=== PATIENT | female | born 2000 | race African-American/Black ===

== ENCOUNTER 2019-11-03 09:50 | Day surgery (SDC) | payer OTHER ==
[~2019-11-03] VITALS: Ht 165.1 cm; Wt 80.0 kg
[2019-11-03] MEDS ORDERED: MORPHINE 4 MG/ML 1ML VIAL/SYRINGE (J2270) IV ONE (11:30)
[2019-11-03] MEDS ORDERED: ONDANSETRON 4MG/2ML VIAL IV ONE (11:30)
--- NOTE | 2019-11-03 11:45 | REP ---
RIGHT LOWER LEG, AP AND LATERAL: AP and lateral views of right lower leg performed. There is a comminuted fracture of the distal third of the tibial shaft with mild posterior displacement and anterior angulation. There is also medial angulation. There is focal angulation of the adjacent fibular shaft medially and anteriorly compatible with a nondisplaced fracture. Electronically Signed by Gavin Talbot MD 11/06/2019 09:23 A
[2019-11-03] MEDS ORDERED: IBUP80TA PO (11:46)
[2019-11-03] MEDS ORDERED: LR 1,000 ML IV SCH ×2 (16:30→20:30)
[2019-11-03] MEDS ORDERED: MORPHINE 4 MG/ML 1ML VIAL/SYRINGE (J2270) IV PRN (16:30)
[2019-11-03 17:40] VITALS: BP 153/99
[2019-11-03] MEDS ORDERED: ONDANSETRON 4MG/2ML VIAL As Ordered ONE (18:11)
[2019-11-03] MEDS ORDERED: propofoL 500 MG/50 ML VIAL As Ordered ONE (18:11)
[2019-11-03] MEDS ORDERED: LIDOCAINE 2% 100MG/5ML SDV (FOR ANES.) As Ordered ONE (18:11)
[2019-11-03] MEDS ORDERED: fentaNYL 100 MCG/2 ML INJECTION (J3010) As Ordered ONE ×3 (18:12→20:23)
[2019-11-03] MEDS ORDERED: MIDAZOLAM INJ 2MG/2ML VIAL (J2250 PER 1MG) As Ordered ONE (18:12)
[2019-11-03] MEDS ORDERED: BUPIVACAINE/EPIN 0.25% 30 ML VIAL As Ordered ONE (19:12)
[2019-11-03] MEDS ORDERED: ceFAZolin 1GM VIAL (J0690 PER 500MG) As Ordered ONE (19:12)
[2019-11-03] MEDS ORDERED: ACETAMINOPHEN 1000MG 100ML IV BTL (OFIRMEV) (J0131 PER 10MG) As Ordered ONE (19:37)
[2019-11-03] MEDS ORDERED: propofoL 200 MG/20 ML VIAL As Ordered ONE (20:05)
[2019-11-03] MEDS ORDERED: oxyCODONE 5MG TAB As Ordered ONE (20:24)
[2019-11-03] MEDS: fentaNYL 100 MCG/2 ML INJECTION (J3010) IV PRN ×4 (20:26→20:46)
[2019-11-03] MEDS ORDERED: oxyCODONE 5MG TAB PO PRN (20:30)
[2019-11-03] MEDS ORDERED: HYDROMORPHONE HCL 0.5 MG/ 0.5 ML SYRINGE (J1170 PER 1) IV PRN ×2 (20:30)
[2019-11-03] MEDS ORDERED: ONDANSETRON 4MG/2ML VIAL IV PRN (20:30)
[2019-11-03] MEDS ORDERED: PROMETHAZINE INJ 25 MG/ML VIAL (J2550) IV PRN (20:45)
[2019-11-03] MEDS ORDERED: PERCOCET 5MG/325MG TAB PO PRN ×2 (20:45)
[2019-11-03] MEDS ORDERED: D5W/LR 1,000 ML IV SCH (20:45)
[2019-11-03 21:06] VITALS: BP 152/98
[2019-11-03 21:26] VITALS: BP 152/98
[2019-11-03 22:34] VITALS: BP 149/95
[2019-11-04 02:05] VITALS: BP 125/64
[2019-11-04 06:14] VITALS: BP 136/79
[2019-11-04] MEDS ORDERED: PERC5TAB12 PO (06:28)
[2019-11-04] MEDS ORDERED: ECOT81TA5 PO (06:28)
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
[2019-11-04] MEDS ORDERED: METAMUCIL (PSYLLIUM) PACKET PO SCH (09:00)
[2019-11-04] MEDS ORDERED: ASPIRIN 81 MG ENTERIC TAB PO SCH (09:00)
--- NOTE | 2019-11-04 09:44 | REP ---
REASON: Closed reduction. COMPARISON: Prereduction examination obtained earlier same day. 33 seconds of fluoroscopy time was provided Dr. Russell Marcial for the procedure. Overlying casting material is seen obscuring the bony detail. The exam was performed in my absentia. A portable C-arm device was utilized to obtain the images. The previously described fracture has been reduced in a closed fashion. The alignment is near anatomical. Electronically Signed by Dakotah Aleman DO 11/04/2019 10:17 A
[2019-11-04 10:00] VITALS: BP 133/77
--- NOTE | 2019-11-04 10:40 | REP ---
REASON: Followup. COMPARISON: Pre-closed reduction exam obtained yesterday. There is overlying casting material obscuring the bony detail. The previously described fracture has been reduced in a closed fashion. Electronically Signed by Dakotah Aleman DO 11/04/2019 10:43 A
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
== END 2019-11-04 12:40 | disposition home or self-care (01) ==
LOC: M ED 09:50 → M SDC 15:15 → M MS5PR 15:20 → ENRESERV 15:21 → M SDC 11-04 12:40
PROVIDERS: ATTEND Orthopaedic Surgery
DX: S82.201A Unspecified fracture of shaft of right tibia, initial encounter for closed fracture (principal); W01.0XXA Fall on same level from slipping, tripping and stumbling without subsequent striking against object, initial encounter; Y99.1 Military activity; Y92.138 Other place on military base as the place of occurrence of the external cause; Y93.02 Activity, running; Z91.81 History of falling
CPT/HCPCS: 27750; 73590; 84702; 96374; 96375; 96376; 97161; 99285; J0131; J2250; J2270; J2405; J3010; U0002

== ENCOUNTER 2019-11-24 06:55 | Emergency (ER) | payer OTHER ==
[~2019-11-24 06:55] MED LIST: ECOT81TA5 PO; IBUP80TA PO; PERC5TAB12 PO
== END 2019-11-24 07:50 | disposition home or self-care (01) ==
LOC: M ED 06:55
DX: G89.18 Other acute postprocedural pain (principal); M79.661 Pain in right lower leg

== ENCOUNTER 2020-09-12 17:07 | Emergency (ER) | payer OTHER ==
[~2020-09-12] VITALS: Ht 144.8 cm; Wt 84.1 kg
[2020-09-12] MEDS ORDERED: NS 500 ML IV ONE (19:40)
[2020-09-12 20:18] LABS: BASO % 0.2 % (0.0-1.0); EOS % 0.1 % (0.0-3.0); HEMATOCRIT 37.2 % (36.0-47.0); HEMOGLOBIN 12.5 g/dl (12.0-15.5); LYMPH # 2.2 10^3/uL (1.5-5.0); LYMPH % 22.7 % (24.0-44.0); MEAN CORPUSCULAR HEMOGLOBIN 32.3 pg (27.0-33.0); MEAN CORPUSCULAR HGB CONC 33.6 g/dl (32.0-36.5); MEAN CORPUSCULAR VOLUME 96.1 fl (80.0-96.0); MONO # 0.9 10^3/uL (0.0-0.8); MONO % 9.4 % (2.0-8.0); NEUTROPHILS # 6.4 10^3/uL (1.5-8.5); NEUTROPHILS % 67.2 % (36.0-66.0); PLATELET COUNT, AUTOMATED 241 10^3/uL (150-450); RED BLOOD COUNT 3.87 10^6/uL (4.00-5.40); WHITE BLOOD COUNT 9.5 10^3/uL (4.0-10.0)
[2020-09-12 20:47] LABS: ALBUMIN 3.5 GM/DL (3.2-5.2); ALT/SGPT 19 U/L (12-78); BILIRUBIN,DIRECT 0.1 MG/DL (0.0-0.2); BILIRUBIN,TOTAL 0.3 MG/DL (0.2-1.0); BLOOD UREA NITROGEN 6 MG/DL (7-18); CALCIUM LEVEL 9.4 MG/DL (8.5-10.1); CARBON DIOXIDE LEVEL 26 MEQ/L (21-32); CHLORIDE LEVEL 104 MEQ/L (98-107); CK-MB VALUE MASS < 1.0 NG/ML (<3.6); CPK CREATINE PHOSPHOKINASE 58 U/L (26-192); CREATININE FOR GFR 0.67 MG/DL (0.55-1.30); GLOMERULAR FILTRATION RATE > 60.0 (>60); GLUCOSE, FASTING 76 MG/DL (70-100); MAGNESIUM LEVEL 2.1 MG/DL (1.8-2.4); MB/CK RELATIVE INDEX 1.72 (< OR =4); POTASSIUM SERUM 3.8 MEQ/L (3.5-5.1); SODIUM LEVEL 138 MEQ/L (136-145); TOTAL PROTEIN 8.1 GM/DL (6.4-8.2); TROPONIN I < 0.02 NG/ML (< 0.10)
[2020-09-12 20:48] LABS: LIPASE 72 U/L (73-393)
[2020-09-12 21:15] VITALS: BP 118/69
[2020-09-12] MEDS ORDERED: CALCTAB89 PO (22:05)
[2020-09-12] MEDS ORDERED: MULTTAB20 PO (22:05)
--- NOTE | 2020-09-14 08:42 | ECGEPIP ---
[facility] - ED Test Date: 2020-09-12 Pat Name: MISHA DANIEL Department: Room: - Gender: Female Pecan Mallow Dipper: jaspreet : 2000 Requested By: NUBIA Valerio Order Number: [id number] Reading MD: Em Shahid Measurements Intervals [place] Rate: 98 P: 44 NC: 130 QRS: 28 QRSD: 72 T: 18 QT: 342 QTc: 436 Interpretive Statements Normal sinus rhythm with sinus arrhythmia NSTTW abnormalities No prior Electronically Signed on 09-14-2020 8:42:07 EDT by mE Shahid
== END 2020-09-12 21:40 | disposition admitted as inpatient to this hospital (09) ==
LOC: M ED 17:07
DX: O99.891 Other specified diseases and conditions complicating pregnancy (principal); R55 Syncope and collapse; R10.9 Unspecified abdominal pain; Z3A.21 21 weeks gestation of pregnancy

== ENCOUNTER 2020-09-12 21:47 | Outpatient (CLI) | payer OTHER ==
[~2020-09-12] VITALS: Ht 167.6 cm; Wt 83.5 kg
[2020-09-12 22:02] VITALS: BP 120/67
[2020-09-12] MEDS ORDERED: CALCTAB89 PO (22:05)
[2020-09-12] MEDS ORDERED: MULTTAB20 PO (22:05)
--- NOTE | 2020-09-12 22:35 | IPNPDOC ---
Text Note Date of Service The patient was seen on 09/12/20. NOTE 20 yo at 20+6 weeks gestation presented to L&D after evaluation in the ER due to a syncopal episode this morning in formation followed by some SOB and dizziness later this afternoon. She called the advice line and was directed to the ER. She denies any obstetric complaints to include discharge, bleeding, leakage of fluid, or contractions. She has had intermittent cramping before but nothing severe. She otherwise denies fevers/chills, SOB, chest pain, dysuria, n/v, or constipation. Vitals - VSS, afebrile, normotensive, non tachycardic General - AAOX3, sitting up in bed, pleasant and conversant, NAD Abdomen - gravid uterus, no fundal tenderness Extremities - No edema Bedside TAUS ( anatomy not assessed): Viable SIUP. Amniotic fluid subjectively normal. +FCA measured at 140 bpm. +gross movement. Cervix closed measuring 3.7cm in length with no funneling. ER workup unremarkable. No obstetric issues. Cervix long and closed on bedside US. Normal vital signs. Suspect vasovagal episode and/or dehydration contributing to symptoms. She reports having syncopal episodes in the past outside of . Will place outpatient cardiology referral. Patient discharged home with return precautions. All questions answered. 20 minutes of patient care DO IRIS Leblanc Fishbone, I+O IRIS, [place], I+O Vital Signs Date Time Temp Pulse Resp B/P (MAP) Pulse Ox O2 Delivery O2 Flow Rate FiO2 09/12/20 22:02 98.3 95 16 120/67 (84) RUPERT CLEVELAND DO September 12, 2020 22:35
== END 2020-09-12 22:35 | disposition home or self-care (01) ==
LOC: M LDO 21:47
PROVIDERS: ATTEND Obstetrics & Gynecology
DX: O26.892 Other specified pregnancy related conditions, second trimester (principal); R55 Syncope and collapse; Z3A.20 20 weeks gestation of pregnancy
CPT/HCPCS: 76815; G0378; G0463

== ENCOUNTER 2020-09-27 19:57 | Outpatient (CLI) | payer OTHER ==
[~2020-09-27] VITALS: Ht 168.9 cm; Wt 85.0 kg
[~2020-09-27 19:57] MED LIST changes: +CALCTAB89 PO; +MULTTAB20 PO
[2020-09-27 20:18] VITALS: BP 126/64
[2020-09-27 21:22] VITALS: BP 113/67
--- NOTE | 2020-09-27 21:58 | IPNPDOC ---
Text Note Date of Service The patient was seen on 09/27/20. NOTE Triage Evaluation - Vaginal Bleeding HPI: Mrs. Bernard Quiroz is a 20yo G1 at 23w0d ega, by LMP c/w 1st trimester ultrasound, who presents for evaluation of vaginal bleeding following sexual intercourse. The patient, and her , report having sexual intercourse this evening. At the completion, the patient noticed vaginal bleeding quantified as "several large drops". They immediately drove to Labor & Delivery for evaluation. Mrs. Quiroz denies abdominal / pelvic cramping, contractions, or leakage of fluid. She endorses movements. Denies dizziness/lightheadedness, Ktemldxlb-jr-syuwcx, chest pain/palpitations, fevers/chills, nausea/vomiting, or constipation/diarrhea. Of note, the patient is Rh+ and had an anatomy ultrasound performed on August 2020 that was w/o evidence of a placenta previa or vasa previa. EFW was 280-grams, which was in the 12th percentile for growth. Physical Examination: Clam Treader: ROSA Flynn. The patient's partner was also present for the entire encounter. Vital signs were stable, afebrile, normotensive, not tachycardic. General: awake, alert and oriented 3, pleasant and conversant. No apparent distress. Abdomen: gravid uterus with no fundal tenderness. Extremities: no clubbing, cyanosis or edema. : Normal external genitalia with a small amount of dark brown blood on the lab ia. SSE: old dark brown blood in the vaginal vault with an area of cervical irritation & no evidence of bleeding from the cervical os. Labs: Blood Type & Rh: B+, Antibody Negative Dop Tones: 130s TOCO: No uterine irritability or CTXs Assessment: 20yo G1 at 20w0d ega who presents with a single episode of vaginal bleeding following sexual intercourse. No active bleeding at this time with bleeding likely from the cervical stroma. Normal Doptone's w/o contractions or uterine irritability. Plan: -No requirement for Rhogam as the patient is Rh+. Pelvic rest 2-weeks. Patient is to follow up at her next regular OB appointment, which is scheduled for September 2020. Strict return precautions reviewed with the couple. All questions answered. Twyla Georges MD, PhD [employer]ЕРГЕЙ [employer] RESEARCH SCIENTIST Staff Physician SARAH GEORGES M.D. Sep 27, 2020 21:58
== END 2020-09-27 21:40 | disposition home or self-care (01) ==
LOC: M LDO 19:57
PROVIDERS: ATTEND Obstetrics & Gynecology Reproductive Endocrinology
DX: O26.852 Spotting complicating pregnancy, second trimester (principal); Z3A.23 23 weeks gestation of pregnancy
CPT/HCPCS: G0378; G0463

== ENCOUNTER → 2020-10-22 | Outpatient (CLI) | payer OTHER ==
--- NOTE | 2020-10-22 15:00 | REP ---
INDICATION: DALE DIAG U/S, RT BREAST LUMP, 13 WEEKS . Palpable lump 3 x 1 cm in diameter in the 4 o'clock position of the right breast. The patient reports that this is been palpable since the age of 12. COMPARISON: No comparison breast imaging is available.. TECHNIQUE: Targeted right breast sonography. FINDINGS: Ultrasound exam performed in the 3 o'clock position of the right breast at the level of the palpable lump demonstrates a 2.1 x 2.1 x 1.0 cm oval-shaped hypoechoic mass with fairly homogeneous internal texture. Its long axis is parallel to the skin. There is well defined back wall and there is some enhanced through transmission. The lesion has a low K PA number on elastography. It is most compatible with but not specific for fibroadenoma. IMPRESSION: 2.1 cm solid macrolobulated soft tissue mass most compatible with but not specific for fibroadenoma. BI-RADS category is felt to be best assigned as category 3, probably benign breast imaging findings. Six-month follow-up sonography is recommended. Sooner if the lesion grows on physical exam. <Electronically signed by Toni Arias > 10/22/20 [id number]
== END ==
LOC: M WHC 13:25
PROVIDERS: ATTEND Registered Nurse Maternal Newborn
DX: N63.14 Unspecified lump in the right breast, lower inner quadrant (principal); Z3A.13 13 weeks gestation of pregnancy

== ENCOUNTER 2020-11-10 12:23 | Outpatient (CLI) | payer OTHER ==
[~2020-11-10] VITALS: Ht 167.6 cm; Wt 87.0 kg
[2020-11-10 12:48] VITALS: BP 119/57
--- NOTE | 2020-11-10 14:19 | IPNPDOC ---
Text Note Date of Service The patient was seen on 11/10/20. NOTE Vital Signs Label Value Date Time Patient Temperature 98.2 degrees F 11/10/20 1248 Temperature Source Temporal 11/10/20 1248 Pulse 91 11/10/20 1248 Respiratory Rate 16 bpm 11/10/20 1248 Blood Pressure Assessment 119/57 (77) 11/10/20 1248 TRIAGE NOTE 11/10/20 1400 HOURS 20 YO AT 29.5 WEEKS BY EARLY US 10.0 WEEKS HAD INTERCOURSE AND PINK DISCHARGE AFTER THAT . NO CONTRACTIONS AND GOOD MOVEMENT. RISK FACTORS BMI 31 ANXIETY FRACTURE RISK PLAN NST STERILE SPECULUM EXAMINATION MICROSCOPIC EVALUATION . CONSENT FOR EXAMINATION STERILE EXAM NO FREE FLUID NO BLOOD CERVIX POSTERIOR FERNING NEGATIVE NEGATIVE BV AND YEAST . CERVIX CLOSED THICK NOT DILATED . PATIENT DISCHARGED WITH PRECAUTIONS RE INTERCOURSE AND SPOTTING . PASSPORT RETURNED DISCHARGED UNDELIVERED HAS APPOINTMENT FT [facility] 48 HOURS Danyel Aguilar MD Nov 10, 2020 14:19
== END 2020-11-10 14:18 | disposition home or self-care (01) ==
LOC: M LDO 12:23
PROVIDERS: ATTEND Obstetrics & Gynecology
DX: O46.93 Antepartum hemorrhage, unspecified, third trimester (principal); Z3A.29 29 weeks gestation of pregnancy; O99.213 Obesity complicating pregnancy, third trimester; E66.9 Obesity, unspecified; O99.343 Other mental disorders complicating pregnancy, third trimester; F41.9 Anxiety disorder, unspecified; Z68.31 Body mass index [BMI] 31.0-31.9, adult
CPT/HCPCS: 59025; G0378; G0463

== ENCOUNTER 2020-11-21 07:01 | Emergency (ER) | payer OTHER ==
[~2020-11-21] VITALS: Ht 170.2 cm; Wt 88.5 kg
[2020-11-21] MEDS ORDERED: NS 1,000 ML IV ONE (09:00)
[2020-11-21 10:41] LABS: BASO % 0.3 % (0.0-1.0); EOS % 0.3 % (0.0-3.0); HEMATOCRIT 29.6 % (36.0-47.0); HEMOGLOBIN 9.8 g/dl (12.0-15.5); LYMPH # 1.8 10^3/uL (1.5-5.0); LYMPH % 16.9 % (24.0-44.0); MEAN CORPUSCULAR HEMOGLOBIN 31.9 pg (27.0-33.0); MEAN CORPUSCULAR HGB CONC 33.1 g/dl (32.0-36.5); MEAN CORPUSCULAR VOLUME 96.4 fl (80.0-96.0); MONO # 0.9 10^3/uL (0.0-0.8); MONO % 8.5 % (2.0-8.0); NEUTROPHILS # 7.7 10^3/uL (1.5-8.5); NEUTROPHILS % 73.3 % (36.0-66.0); PLATELET COUNT, AUTOMATED 177 10^3/uL (150-450); RED BLOOD COUNT 3.07 10^6/uL (4.00-5.40); WHITE BLOOD COUNT 10.6 10^3/uL (4.0-10.0)
[2020-11-21] MEDS ORDERED: ACETAMINOPHEN 500 MG TAB PO ONE (11:00)
[2020-11-21 11:03] LABS: ALBUMIN 2.7 GM/DL (3.2-5.2); ALT/SGPT 17 U/L (12-78); BILIRUBIN,TOTAL 0.4 MG/DL (0.2-1.0); BLOOD UREA NITROGEN 5 MG/DL (7-18); CALCIUM LEVEL 8.8 MG/DL (8.5-10.1); CARBON DIOXIDE LEVEL 23 MEQ/L (21-32); CHLORIDE LEVEL 108 MEQ/L (98-107); CK-MB VALUE MASS < 1.0 NG/ML (<3.6); CPK CREATINE PHOSPHOKINASE 46 U/L (26-192); CREATININE FOR GFR 0.53 MG/DL (0.55-1.30); FREE T4 0.84 NG/DL (0.76-1.46); GLOMERULAR FILTRATION RATE > 60.0 (>60); GLUCOSE, FASTING 74 MG/DL (70-100); MB/CK RELATIVE INDEX 2.17 (< OR =4); POTASSIUM SERUM 3.9 MEQ/L (3.5-5.1); SODIUM LEVEL 140 MEQ/L (136-145); THYROID STIMULATING HORMONE 0.777 uIU/ML (0.358-3.740); TOTAL PROTEIN 6.6 GM/DL (6.4-8.2); TROPONIN I < 0.02 NG/ML (< 0.10)
[2020-11-21] MEDS ORDERED: CEPH500C PO (13:16)
[2020-11-21 13:52] VITALS: BP 127/61
--- NOTE | 2020-11-22 07:47 | ECGEPIP ---
[facility] - ED Test Date: 2020-11-21 Pat Name: MISHA DANIEL Department: Room: - Gender: Female Rn Building: : 2000 Requested By: NAS Valdes PA-C Order Number: [id number] Reading MD: Madhu Sutton Measurements Intervals [place] Rate: 79 P: 47 IA: 138 QRS: 50 QRSD: 78 T: 27 QT: 364 QTc: 417 Interpretive Statements Normal sinus rhythm POOR R WAVE PROGRESSION NONSPECIFIC T WAVE ABNORMALITY(S) SIMILAR TO 09/12/20 Electronically Signed on 11-22-2020 7:46:45 EDT by Madhu Sutton
== END 2020-11-21 14:01 | disposition home or self-care (01) ==
LOC: M ED 07:01
DX: R82.71 Bacteriuria (principal); J06.9 Acute upper respiratory infection, unspecified; B34.8 Other viral infections of unspecified site; Z3A.30 30 weeks gestation of pregnancy

== ENCOUNTER 2021-01-16 10:39 | Outpatient (CLI) | payer OTHER ==
[~2021-01-16] VITALS: Ht 167.6 cm; Wt 91.9 kg
[~2021-01-16 10:39] MED LIST changes: +CEPH500C PO
[2021-01-16 10:52] VITALS: BP 135/82
[2021-01-16] MEDS ORDERED: ACET-907 PO (10:56)
[2021-01-16 10:59] VITALS: BP 123/59
[2021-01-16] MEDS ORDERED: HOME MED LIST COMPLETE! XX SCH (11:35)
--- NOTE | 2021-01-16 13:01 | IPNPDOC ---
Obstetrical Progress Note Date of Service Jan 16, 2021 Objective Vital Signs Date Time Temp Pulse Resp B/P (MAP) Pulse Ox O2 Delivery O2 Flow Rate FiO2 01/16/21 10:59 97 123/59 (80) 01/16/21 10:52 97.8 18 Room Air Assessment and Plan Additional Comments Ms. Quiroz is a 20yo at 38+6 who presents for concern for ROM at 1800 yesterday, clear, no odors. She is unsure if she has been leaking since. She also complains of regular painful contractions. She does not feel any pressure. She denied VB and decreased FM. She otherwise denied a 12 point ROS. VS normal AAOx3, NAD non-tachy no increased WOB ABD NT, gravid Extrem normal TAUS cephalic, MVP 3.6cm, +FM CAT I NST, reactive, irregular contractions on toco spec exam with no pooling, no ferning, SVE 1/T/H Given findings ROM and labor are unlikely at this time. Educated on routine OB return precautions. Otherwise to follow up at next BORA PUENTES DO Jan 16, 2021 13:01
== END 2021-01-16 13:00 | disposition home or self-care (01) ==
LOC: M LDO 10:39
PROVIDERS: ATTEND Obstetrics & Gynecology
DX: O47.1 False labor at or after 37 completed weeks of gestation (principal); Z3A.38 38 weeks gestation of pregnancy
CPT/HCPCS: 59025; 76815; G0378; G0463

== ENCOUNTER 2021-01-31 11:05 | Inpatient (IN) | payer OTHER ==
[~2021-01-31] VITALS: Ht 167.6 cm; Wt 92.4 kg
[2021-01-31] VITALS (27 sets, daily range): BP systolic 122–152; BP diastolic 62–104
[~2021-01-31 11:05] MED LIST changes: +ACET-907 PO
--- OUTSIDE RECORDS SUMMARY | 2021-01-31 11:11 | CCD ---
Author Author [facility] Organization [facility] Address Unknown Phone Unavailable Care Team Providers Care Hvac Mechanical Engineer Name Role Phone [facility] Keena [facility], PA-C Unavailable Unavailabl e Fish, [facility], PA-C Unavailable Unavailabl e Fish, [facility], PA-C Unavailable Unavailabl e Fish, [facility], PA-C Unavailable Unavailabl e Fish, [facility], PA-C Unavailable Unavailabl e Fish, [facility], PA-C Unavailable Unavailabl e Fish, [facility], PA-C Unavailable Unavailabl e Fish, [facility], PA-C Unavailable Unavailabl e Fish, [facility], PA-C Unavailable Unavailabl e Fish, [facility], PA-C Unavailable Unavailabl e Fish, [facility], PA-C Unavailable Unavailabl e Fish, [facility], PA-C Unavailable Unavailabl e Fish, [facility], PA-C Unavailable Unavailabl e Fish, [facility], PA-C Unavailable Unavailabl e Fish, [facility], PA-C Unavailable Unavailabl e Fish, [facility], PA-C Unavailable Unavailabl e Fish, [facility], PA-C Unavailable Unavailabl e Fish, Keena Ju [facility], PA-C Unavailable Unavailabl e Fish, [facility], PA-C Unavailable Unavailabl e Fish, [facility], PA-C Unavailable Unavailabl e Fish, [facility], PA-C Unavailable Unavailabl e Fish, [facility], PA-C Unavailable Unavailabl e Fish, [facility], PA-C Unavailable Unavailabl e Fish, [facility], PA-C Unavailable Unavailabl e Fish, [facility], PA-C Unavailable Unavailabl e Fish, [facility], PA-C Unavailable Unavailabl e Fish, [facility], PA-C Unavailable Unavailabl e Fish, [facility], PA-C Unavailable Unavailabl e Fish, [facility], PA-C Unavailable Unavailabl e Fish, [facility], PA-C Unavailable Unavailabl e Fish, [facility], PA-C Unavailable Unavailabl e Fish, [facility], PA-C Unavailable Unavailabl e Fish, [facility], PA-C Unavailable Unavailabl e Fish, [facility], PA-C Unavailable Unavailabl e Fish, [facility], PA-C Unavailable Unavailabl e Yudith Marcial MD Unavailable Unavailable MarcialYudith villarreal MD Unavailable Unavailable MarcialYudith MD Unavailable Unavailable MarcialYudith villarreal MD Unavailable Unavailable MarcialYudith villarreal MD Unavailable Unavailable MarcialYudith villarreal MD Unavailable Unavailable MarcialYudith villarreal MD Unavailable Unavailable MarcialYudith villarreal MD Unavailable Unavailable MarcialYudith MD Unavailable Unavailable MarcialYudith MD Unavailable Unavailable MarcialYudith MD Unavailable Unavailable MarcialYudith MD Unavailable Unavailable MarcialYudith villarreal MD Unavailable Unavailable MarcialYudith villarreal MD Unavailable Unavailable MarcialYudith villarreal MD Unavailable Unavailable MarcialYudith villarreal MD Unavailable Unavailable MarcialYudith villarreal MD Unavailable Unavailable MarcialYudith villarreal MD Unavailable Unavailable MarcialYudith villarreal MD Unavailable Unavailable MarcialYudith villarreal MD Unavailable Unavailable Yudith Marcial MD Unavailable Unavailable Yudith Marcial MD Unavailable Unavailable Yudith Marcial MD Unavailable Unavailable Yudith Marcial MD Unavailable Unavailable MarcialYudith villarreal MD Unavailable Unavailable MarcialYudith villarreal MD Unavailable Unavailable MarcialYudith villarreal MD Unavailable Unavailable Marcial, L Russell MD Unavailable Unavailable Marcial, L Russell MD Unavailable Unavailable Marcial, L Russell MD Unavailable Unavailable Marcial, L Russell MD Unavailable Unavailable Marcial, L Russell MD Unavailable Unavailable Marcial, L Russell MD Unavailable Unavailable Marcial, L Russell MD Unavailable Unavailable Marcial, L Russell MD Unavailable Unavailable Marcial, L Russell MD Unavailable Unavailable Marcial, L Russell MD Unavailable Unavailable Marcial, L Russell MD Unavailable Unavailable Marcial, L Russell MD Unavailable Unavailable Marcial, L Russell MD Unavailable Unavailable Marcial, L Russell MD Unavailable Unavailable Marcial, L Russell MD Unavailable Unavailable Marcial, L Russell MD Unavailable Unavailable Marcial, L Russell MD Unavailable Unavailable Marcial, L Russell MD Unavailable Unavailable Marcial, L Russell MD Unavailable Unavailable Marcial, L Russell MD Unavailable Unavailable Marcial, L Russell MD Unavailable Unavailable Marcial, L Russell MD Unavailable Unavailable Re-disclosure Warning The records that you are about to access may contain information from federally-assisted alcohol or drug abuse programs. If such information is present, then the following federally mandated warning applies: This information has been disclosed to you from records protected by federal confidentiality rules (42 CFR part 2). The federal rules prohibit you from making any further disclosure of this information unless further disclosure is expressly permitted by the written consent of the person to whom it pertains or as otherwise permitted by 42 CFR part 2. A general authorization for the release of medical or other information is NOT sufficient for this purpose. The Federal rules restrict any use of the information to criminally investigate or prosecute any alcohol or drug abuse patient.The records that you are about to access may contain highly sensitive health information, the redisclosure of which is protected by Article 27-F of the [facility] Public Health law. If you continue you may have access to information: Regarding HIV / AIDS; Provided by facilities licensed or operated by the [facility] Office of Mental Health; or Provided by the [facility] Office for People With Developmental Disabilities. If such information is present, then the following [facility] mandated warning applies: This information has been disclosed to you from confidential records which are protected by state law. State law prohibits you from making any further disclosure of this information without the specific written consent of the person to whom it pertains, or as otherwise permitted by law. Any unauthorized further disclosure in violation of state law may result in a fine or fpc sentence or both. A general authorization for the release of medical or other information is NOT sufficient authorization for further disc losure. Encounters Encounter Providers Location Date Indications Data Source(s ) Outpatient Attender: Ju GALVAN PA-C Physical Therapy 03/01/2020 01:30:00 PM EST [facility] ([facility]) Office Visit Attender: Russell Marcial MD Physical Therapy 2019 03:00:00 PM EDT [facility] ([facility]) Office Visit Attender: Russell Marcial MD Physical Therapy 2019 03:30:00 PM EDT [facility] ([facility]) Office Visit Attender: Russell Marcial MD Physical Therapy 2019 03:00:00 PM EDT [facility] ([facility]) Medications No Information Insurance Providers Payer name Policy type / Coverage type Policy ID Covered republican ID Covered republican's relationship to fang Policy Fang Plan Information [facility] ACT[employer] DUTY [id number] SP [id number] SELF PAY ONLY [id number] SP [id number] [employer] [place] [employer] [place] [id number] S [id number] [facility] [employer] - O/P [id number] Problems, Conditions, and Diagnoses No Information Surgeries/Procedures Procedure Description Date Indications Data Source(s) RADIOLOGIC EXAMINATION TIBIA & FIBULA 2 VIEWS 02/02/20 12:00:00 AM EDT [facility] ([facility] RADIOLOGIC EXAMINATION TIBIA & FIBULA 2 VIEWS 12/27/19 12:00:00 AM EDT [facility] ([facility] ) Apply Cast Long Leg 12/12/2019 12:00:00 AM EDT [facility] ([facility] RADIOLOGIC EXAMINATION TIBIA & FIBULA 2 VIEWS 12/12/19 12:00:00 AM EDT [facility] ([facility] ) Results ID Date Data Source [id number] 11/21/2020 08:51:00 AM EDT [facility] Name Value Range Interpretation Code Description Data Mary rce(s) Supporting Document(s) SARS-CoV-2 (COVID 19) NEGATIVE - SARS-CoV-2 (COVID19) [facility] This lab was ordered by [facility] a nd reported by [facility]. ID Date Data Source [id number] 08/06/2020 01:03:00 PM EDT [facility] Name Value Range Interpretation Code Description Data Mary rce(s) Supporting Document(s) SARS coronavirus 2 RNA Not Detected [facility] This lab was ordered by [facility] and reported by [facility]. ID Date Data Source [id number] 03/22/2020 12:00:00 AM EST [facility] Ju Dueñas Pa-C Patient Name: MARTINA DANIELE[address] [facility] 2000[facility] [address] Date of Exam: 03/22/2020PH#: Fax: [phone] EXAM: CT LOWER EXTREMITY W/O CONTRASTCLINICAL INFORMATION: The patient has sustained a tibial fracture inJuly.Prior plain film examination of 11/04/2019 was reviewed.Low dose 64 slice helical scanning through the right lower extremity,attention tibia was obtained using 1 mm increments and reconstructed inboth coronal and sagittal planes. 3D reconstructions were also obtained.Post processing was performed at the physician's workstation.There is a healing comminuted distal tibial fracture with callus formationseen surrounding all fracture fragments. Alignment is near anatomical.There are no additional fractures. The bones are somewhat demineralized,likely secondary to disuse atrophy.IMPRESSION:Healing fracture and related findings as described above.Accredited by the [employer] in [place].THELMA Garcia/Akanksha you for referring MISHA DANIEL to our office. Electronically Signed - JEFFERY WHITESIDE DO 03/22/20 16:57 Name Value Range Interpretation Code Description Data Mary rce(s) Supporting Document(s) Procedure Social History No Information
[2021-01-31] MEDS ORDERED: HOME MED LIST COMPLETE! XX SCH (11:25)
[2021-01-31 12:39] LABS: HEMATOCRIT 35.7 % (36.0-47.0); HEMOGLOBIN 11.7 g/dl (12.0-15.5); MEAN CORPUSCULAR HGB CONC 32.8 g/dl (32.0-36.5); MEAN CORPUSCULAR VOLUME 94.7 fl (80.0-96.0); PLATELET COUNT, AUTOMATED 184 10^3/uL (150-450); RED BLOOD COUNT 3.77 10^6/uL (4.00-5.40); WHITE BLOOD COUNT 9.3 10^3/uL (4.0-10.0)
[2021-01-31] MEDS ORDERED: PENICILLIN G POTASSIUM IV 5 MU in D5W MINI-BAG PLUS 100 ML IV STA (15:09)
[2021-01-31] MEDS ORDERED: OXYTOCIN INJ 10 UNITS/ML VIAL (J2590) IV PRN (15:10)
[2021-01-31] MEDS ORDERED: METHYLERGONOVINE MALEATE 0.2 MG/ML VIAL (J2210) IM PRN (15:10)
[2021-01-31] MEDS ORDERED: LACTATED RINGER'S 1000 ML IV ONE (15:10)
[2021-01-31] MEDS ORDERED: OXYTOCIN DRIP 30 UNITS in IV 1 EA IV SCH (15:10)
[2021-01-31] MEDS ORDERED: OXYTOCIN DRIP 30 UNITS in IV 1 EA IV PRN (15:10)
[2021-01-31] MEDS: LR 1,000 ML IV SCH ×2 (15:45→20:55)
[2021-01-31] MEDS ORDERED: ACETAMINOPHEN 500 MG TAB PO PRN (18:00)
--- NOTE | 2021-01-31 18:04 | HPEPDOC ---
Obstetrical History & Physical General Date of Admission Jan 31, 2021 at 11:05 Primary Care Physician: Danyel Aguilar MD History of Present Illness Vital Signs Label Value Date Time Blood Pressure Assessment 137/78 (97) 01/31/21 1716 Source Automatic Cuff (NIBP) Respiratory Rate 16 bpm 01/31/21 1716 Pulse 81 01/31/21 1716 Patient Temperature 98.4 degrees F 01/31/21 1716 Temperature Source Temporal 01/31/21 1716 Pulse 85 01/31/21 1648 Blood Pressure Assessment 141/82 (101) 01/31/21 1648 Source Automatic Cuff (NIBP) Blood Pressure Assessment 132/78 (96) 01/31/21 1618 Source Automatic Cuff (NIBP) Pulse 87 01/31/21 1618 Blood Pressure Assessment 134/66 (88) 01/31/21 1428 Source Automatic Cuff (NIBP) Pulse 83 01/31/21 1428 Pulse 100 01/31/21 1329 Blood Pressure Assessment 135/82 (99) 01/31/21 1329 Source Automatic Cuff (NIBP) Blood Pressure Assessment 140/74 (96) 01/31/21 1122 Source Automatic Cuff (NIBP) Respiratory Rate 17 bpm 01/31/21 1122 Pulse 102 01/31/21 1122 Patient Temperature 98.6 degrees F 01/31/21 1122 Temperature Source Temporal 01/31/21 1122 Item Value Date Time White Blood Count 9.3 10^3/uL 01/31/21 1226 Red Blood Count 3.77 10^6/uL L 01/31/21 1226 Hemoglobin 11.7 g/dl L 01/31/21 1226 Hematocrit 35.7 % L 01/31/21 1226 Mean Corpuscular Volume 94.7 fl 01/31/21 1226 Mean Corpuscular Hemoglobin 31.0 pg 01/31/21 1226 Mean Corpuscular Hemoglobin Concent 32.8 g/dl 01/31/21 1226 Red Cell Distribution Width 13.7 % 01/31/21 1226 Platelet Count 184 10^3/uL 01/31/21 1226 20 yo LMP 04/19/20 EDC 01/24/21 BY EARLY US 10.0 WEEKS HERE FOR IOL AT41.1 WEEKS Chief Complaint: Induction of labor Information Provided By: Patient Age: 20 : 1 Term: 0 Pre-term: 0 Abortions: 0 Livin Care Care: Good Care Number of Visits: 10 Dating Final EDC: Jan 24, 2021 Final EDC for Daily Update: Jan 24, 2021 Final EDC by: LMP LMP: Apr 19, 2020 1st Trimester Date: September 06, 2020 Weeks + Days: 10 Estimated Date of Confinement: Jan 24, 2021 EGA at Admission: 41.1 Antepartum Course Diagnos(e)s POST TERM GESTATION Height (inches): 66 Pre- weight (lbs.): 165 Admission Weight (lbs.): 203 Change in Weight (lbs.): 38 Past Medical History Past Obstetrical History : Past Obstetrical History: Primgravida (NON CONTRIBUTORY) Past Medical History Surgical History: Other (RT TIBIAL FX,RT BREAST LUMP,) Family History Family History MOTHER LUPUS, HYPERTENSION,DIABETES FATHER DIABETES Social History Social history NON SMOKER VAPES ACTIVE DUTY NO VIOLENCE Marital Status: Family situation: Spouse/partner home Psychosocial History: Anxiety (DEPRESSION), Depression * Smoker: former Smoker Alcohol: Denies Drugs: denies Abuse Violence Screening Have you been hit/kicked/slapp: No Have you been sexually assault: No Imunizations Tdap status: current Influenza Status: current Allergies Coded Allergies: No Known Allergies (Unverified , 11/10/20) Medications Scheduled No122/Iron/Folic Acid ( Multi Tablet) 1 Each Tablet, 1 TAB PO DAILY Miscellaneous Medications Acetaminophen (Tylenol) 325 Mg Tablet, 325 MG PO Physical Examination Physical Examination GENERAL: Alert and oriented times three. BREAST: . ABDOMEN: Gravid and non-tender to touch. FETUS: Is vertex (VTX) by sterile vaginal examination (SVE), fetus is vertex (VTX) by Judah. HEART RATE: Regular rate and rhythm. LUNGS: Clear to auscultation (CTA). EXTREMITIES: No edema. No clonus. Deep tendon reflexes (DTRs) + . Other physical findings CATAGORY 1 STRIP,NORMOCEPHALIC ATRAUMATIC NECK FULL RANGE MOTION PERRLA, HRR DISTAL PULSES SYMMETRIC LUNGS CLEAT TO BASES DISTAL PULSES SYMMETRIC, NO WHEEZE NO RONCHI NO CVA TENDERNESS GRAVID SYMMETRIC SF HEIGHT 39 CM 4 QUADRANT BOWEL SOUNDS VERTEX PELVIC 3-4 CM 90% EFFACED -3 STATION BULGING MEMBRANES . NO RASHES LESIONS PURITIS NO ARTHRALGIA MYALGIA NO JOINT PAIN. NO COUGH NO SOB, NO ASKEW. NO URGENCY FREQUENCY NO N/V/D/C/F/ Vital Signs/I&O Vital Signs Date Time Temp Pulse Resp B/P (MAP) Pulse Ox O2 Delivery O2 Flow Rate FiO2 01/31/21 17:16 98.4 81 16 137/78 (97) Laboratory Data 24H LABS Laboratory Tests 2 01/31/21 12:26: Nucleated Red Blood Cells % (auto) 0.0, Syphilis Serology NONREACTIVE, Coronavirus (COVID-19)(PCR) NEGATIVE 01/31/21 13:15: Serology Scanned Report Hepatitis B Testing CBC/BMP Laboratory Tests 01/31/21 12:26 Pertinent Laboratoy Data Blood Type: B+ RBC Antibody Screen: Negative HIV: Negative Hepatitis B: Negative Rapid Plasma Reagin: Nonreactive Rubella: Immune Varicella: Immune Chlamydia/Gonorrhea: Negative Group B Streptococcus: Positive Quad Screen Test: Unknown Cystic Fibrosis: Negative Anatomy Ultrasound Ultrasound Date: September 06, 2020 Placenta Location: Anterior Normal Anatomy: Yes Estimated Weight (grams): 280 Steroid Therapy Steroid Therapy: No Vaginal Examination Dilation: 4 cm Effacement: 90% Station: -3 Cervical Consistency: Soft Cervical Position: Posterior Presentation: Cephalic presentation Assessment Heart Rate (FHR): 144 Variability: Moderate Accelerations: Positive Decelerations: None Tocometer Contractions: Yes Frequency: every 1-5 min., greater than 10 min/apart Duration: less than 60 seconds Strength: palpated as mild Assessment/Plan Assessment 20-year-old (G1 para (P 0 at 41,1 weeks by 10 -week ultrasound. Presents to Labor and Delivery (L&D) IOL POST DATES GBS POSITIVE Plan Admit and orient. [employer] and consent. Diet: FLUIDS Group B Streptococcus (GBS) POSITIVE . Labs and intravenous (IV) per unit protocol. Counseled on Pitocin and induction of labor (IOL). Lactated Ringers (LR): Bolus 1000mL, then at 125 mL/hr. Anticipate [normal spontaneous delivery ()]. C-S as appropriate. Labor and Delivery Counseling REVIEWED PLAN OF CARE BASED ON GBS STATUS ANTIBIOTICS PRE AROM AT LEAST 4 HOURS. MAY REQUIRE AUGMENTATION WITH PITOCIN DISCUSSED PAIN CONTROL NON IN HER PLAN, REVIEWED POSSIBLE EPISIOTOMY OR VAGINAL TEARS NEEDING REPAIR TO BOWEL BLADDER URETHRA RECTUM OR VAGINA REVIEWED POSSIBLE CS FOR OR MATERNAL INDICATIONS . POSSIBLE BLOOD TRANSFUSIONS REMOTE HYSTERECTOMY FOR LIFE THREATENING SITUATIONS ALSO ADMISSION TO NICU RE BLOOD SUGARS ALSO CEPHALOHEMATOMA SCRATCHES HEMATOMA EXPRESSED UNDERSTANDING SAFE TO PROCEED . 30 MINUTE DISCUSSION ALL QUESTIONS ANSWERED Danyel Aguilar MD Jan 31, 2021 18:01
[2021-01-31] MEDS ORDERED: FENTANYL 2MCG/ML ROPIVACAINE 0.2% IN 0.9% NACL 100ML IVBAG As Ordered ONE (19:07)
[2021-01-31] MEDS: PENICILLIN G POTASSIUM IV 2.5 MU in IV 1 EA IV SCH (19:44)
[2021-01-31] MEDS ORDERED: EPIDURAL/PCA KEYS XX PRN (20:14)
[2021-01-31] MEDS ORDERED: ONDANSETRON 4MG/2ML VIAL IV PRN (20:14)
[2021-01-31] MEDS ORDERED: EPIDURAL COMMENT XX SCH (20:14)
[2021-01-31] MEDS ORDERED: diphenhydrAMINE 50MG/ML VIAL (J1200) IV PRN (20:14)
[2021-01-31] MEDS ORDERED: REFRIGERATOR IV KEYS XX PRN (20:14)
[2021-01-31] MEDS ORDERED: LACTATED RINGER'S 1000 ML IV PRN (20:14)
[2021-01-31] MEDS ORDERED: NALOXONE INJ 0.4MG/1ML VIAL (J2310 PER 1MG) IV PRN (20:14)
[2021-01-31] MEDS ORDERED: ePHEDrine SULFATE 25 MG/5 ML(5MG/ML) SYRINGE IV PRN (20:14)
--- NOTE | 2021-01-31 23:07 | IPNPDOC ---
Text Note Date of Service The patient was seen on 01/31/21. NOTE 01/31/21 2200 hrs om 4 munits Pitocin category 1 strip arom meconium thin c ervix 9 cm not well applied to cervix safe to proceed VS,Fishbone, I+O VS, Fishbone, I+O Laboratory Tests 01/31/21 12:26 Vital Signs Date Time Temp Pulse Resp B/P (MAP) Pulse Ox O2 Delivery O2 Flow Rate FiO2 01/31/21 18:47 85 141/86 (104) 01/31/21 17:16 98.4 16 Danyel Aguilar MD Jan 31, 2021 23:07
[2021-02-01] VITALS (22 sets, daily range): BP systolic 113–149; BP diastolic 56–89
[2021-02-01] MEDS: PENICILLIN G POTASSIUM IV 2.5 MU in IV 1 EA IV SCH ×2 (00:18→04:25)
[2021-02-01] MEDS: FENTANYL/ROPIVACAINE/NACL BAG 100 ML EPIDURAL SCH ×2 (00:19→04:46)
[2021-02-01] MEDS: LR 1,000 ML IV SCH ×3 (04:13→16:10)
[2021-02-01 08:09] LABS: CORD GAS ABE V -2.1; CORD GAS HCO3 A 22.5 MEQ/L; CORD GAS HCO3 V 22.6 MEQ/L; CORD GAS O2 SAT A 92.2 %; CORD GAS O2 SAT V 88.9 %; CORD GAS PCO2 V 38.7 mmHg; CORD GAS PH A 7.391 UNITS; CORD GAS PH V 7.385 UNITS; CORD GAS PO2 A 50.2 mmHg; CORD GAS PO2 V 42.8 mmHg; CORD GAS SBC A 22.7 MEQ/L; CORD GAS SBC V 22.6 MEQ/L; CORD GAS TCO2 A 23.7 MEQ/L; CORD GAS TCO2 V 23.8 MEQ/L
[2021-02-01] MEDS ORDERED: MEASLES,MUMPS,RUBELLA VACCINE INJ (MMR-II) (90707) SC SCH (08:10)
[2021-02-01] MEDS ORDERED: ANUSOL HC CREAM 30GM TOP PRN (08:10)
[2021-02-01] MEDS ORDERED: OXYTOCIN INJ 10 UNITS/ML VIAL (J2590) IV ONE (08:10)
[2021-02-01] MEDS ORDERED: METHYLERGONOVINE MALEATE 0.2 MG TAB PO PRN (08:10)
[2021-02-01] MEDS ORDERED: IBUPROFEN 800 MG TAB PO PRN (08:10)
[2021-02-01] MEDS ORDERED: MOM 30ML SUSPENSION UDC PO PRN (08:10)
[2021-02-01] MEDS ORDERED: DIBUCAINE 1% OINTMENT 30GM TOP PRN (08:10)
[2021-02-01] MEDS ORDERED: ACETAMINOPHEN TAB 650MG DOSE (2X325MG) PO PRN (08:10)
[2021-02-01] MEDS ORDERED: OXYTOCIN DRIP 30 UNITS in IV 1 EA IV SCH (08:10)
[2021-02-01] MEDS ORDERED: RHOGAM 300 MCG (1500 IU) INJ (J2790) IM SCH (08:10)
[2021-02-01] MEDS: PRENATAL VITAMINS CHEWABLE TABLET PO SCH (09:00)
[2021-02-01] MEDS: ONDANSETRON 4MG/2ML VIAL IV PRN ×2 (10:16→10:17)
[2021-02-01] MEDS: IBUPROFEN 600MG TAB PO PRN ×2 (11:06→17:32)
--- NOTE | 2021-02-01 12:45 | DN ---
DELIVERY NOTE DATE OF DELIVERY: 02/01/2021 This is a 20-year-old 1, para 0, admitted at 41 and 1 weeks of gestation for induction of labor. She has risk factors of being late term and GBS positive. She had an epidural in place, an artificial rupture of membranes (ARM) draining clear liquor. She eventually got fully dilated. Spontaneous vaginal delivery, female infant, 8 pounds 9 ounces, 3890 grams, scores of 7 and 9 at one and five minutes, respectively. Terminal meconium as noted. Arterial pH 7.39, base excess -2.0, venous pH 7.38, base excess -2.1. Placenta delivered with the baby and had three vessels in the cord. Membranes and tissues intact. Uterus contracted well down on Pitocin. On evaluation of anterior, posterior of laterals were complete. No tears or lacerations. Sphincter was tight. Uterus maintained being contracted post delivery on Pitocin. Patient and baby tolerating procedure well.
[2021-02-01] MEDS: DOCUSATE SODIUM 100MG CAPSULE PO PRN (20:20)
--- NOTE | 2021-02-02 01:07 | IPNPDOC ---
Progress Note Date of Service: Feb 02, 2021 Day#: 1 Progress Note S: States she is doing well. Reports pain controlled with motrin/tylenol. She is ambulating well, tolerating a regular diet, urinating without difficulty, reports normal bowel activities and has no breast or leg pain. States is going well. Lochia is diminishing. Ambulating well, denies dizziness, lightheadedness. O: VS: Vital Signs Label Value Date Time Patient Temperature 97.7 degrees F 02/01/211822 Temperature Source Temporal 02/01/211822 Pulse 75 02/01/211822 Respiratory Rate 18 bpm 02/01/211822 Blood Pressure Assessment 119/56 (77) 02/01/211822 Source Automatic Cuff (NIBP) Bedside Pulse Oximetry 98 % 02/01/211822 Item Value Date Time Oxygen Delivery Method Room Air 02/01/211822 General: Alert. Well-appearing, in no acute distress. Tired with appropriate responses. PSYCH: Well groomed. Appropriate affect, normal mood. Conversed easily. Neuro: Oriented to time, place, and person. RESP: Lungs clear to auscultation bilaterally without wheezes, rales or rhonchi. Unlabored breathing. CV: Normal RRR, no murmur, c/w normal . No edema to bilateral upper and lower extremities. Negative calf tenderness. Breast: Soft, filling. No erythema or tenderness. Intact nipples. ABD: Soft, non-tender. BS normal x4 quad. Fundus: Firm U-2, Fundus non-tender. MSK: legs without calf tenderness or edema bilaterally A/P 20yo G 1 P 1 day 1 s/p at 41+1 wks gestation B positive/RI/ GBS positive, adequately treated Normal progression well GHTN with elevated BP in labor meeting criteria for dx. Normotensive since delivery. VSS Plans Piedad for control after discharge. Continue care and comfort measures, tylenol/motrin for pain Encouraged and ambulation Plan discharge home after 48hrs (Wednesday) Discharge medications previously picked up from pharmacy. No new discharge medications ordered. VS, I&O, 24H, Fishbone Vital Signs/I&O Vital Signs Date Time Temp Pulse Resp B/P (MAP) Pulse Ox O2 Delivery O2 Flow Rate FiO2 02/01/21 18:23 97.7 75 18 119/56 (77 98 Room Air I&O- Last 24 Hours up to 6 AM 02/02/21 06:00 Intake Total 1625 ml Output Total 2150 ml Balance -525 ml Laboratory Data 24H LABS Laboratory Tests 2 02/01/21 08:00: Cord Arterial Blood pH 7.391, Cord Arterial Blood PCO2 38.0, Cord Arterial Blood PO2 50.2, Cord Arterial Blood HCO3 22.5, Cord Arterial Blood Total CO2 23.7, Cord Arterial Blood Base Excess -2.0, Cord Arterial Base Excess (Standard 22.7, Cord Arterial Bld Oxygen Saturation 92.2, Cord Venous Blood pH 7.385, Cord Venous Blood PCO2 38.7, Cord Venous Blood PO2 42.8, Cord Venous Blood HCO3 22.6, Cord Venous Blood Total CO2 23.8, Cord Venous Base Excess (Actual) -2.1, Cord Venous Base Excess (Standard) 22.6, Cord Venous Blood Oxygen Saturation 88.9 KHANH BREEN CNM Feb 02, 2021 01:07
[2021-02-02] MEDS: IBUPROFEN 600MG TAB PO PRN ×3 (01:08→21:16)
[2021-02-02 06:00] VITALS: BP 128/62
[2021-02-02 07:04] VITALS: BP 133/84
[2021-02-02 07:18] LABS: HEMATOCRIT 27.2 % (36.0-47.0); HEMOGLOBIN 8.7 g/dl (12.0-15.5); MEAN CORPUSCULAR HEMOGLOBIN 30.7 pg (27.0-33.0); MEAN CORPUSCULAR VOLUME 96.1 fl (80.0-96.0); PLATELET COUNT, AUTOMATED 137 10^3/uL (150-450); RED BLOOD COUNT 2.83 10^6/uL (4.00-5.40); WHITE BLOOD COUNT 12.8 10^3/uL (4.0-10.0)
[2021-02-02] MEDS: PRENATAL VITAMINS CHEWABLE TABLET PO SCH (09:00)
[2021-02-02] MEDS: ACETAMINOPHEN 500 MG TAB PO PRN (09:00)
[2021-02-02 18:00] VITALS: BP 123/76
[2021-02-02] MEDS: DOCUSATE SODIUM 100MG CAPSULE PO PRN (21:17)
[2021-02-03] MEDS ORDERED: IBUP-1022 PO (00:31)
[2021-02-03] MEDS ORDERED: DOCU100C16 PO (00:31)
[2021-02-03] MEDS: ACETAMINOPHEN 500 MG TAB PO PRN (01:32)
[2021-02-03] MEDS: IBUPROFEN 600MG TAB PO PRN (05:06)
[2021-02-03 06:00] VITALS: BP 105/59
--- NOTE | 2021-02-03 06:01 | IPNPDOC ---
Progress Note Date of Service: Feb 03, 2021 Progress Note SUBJECT: Bernard Wells is a 20-year-old 1 now Para 1001 status post uncomplicated spontaneous vaginal delivery at 41+1 weeks doing well day # 2. She has been ambulating, voiding spontaneously without issue and tolerating regular diet. Breast feeding without issue. Reports lochia is like a normal period. Patient is ambulating well. Denies headaches, vision changes, shortness of breath, right upper quadrant pain. OBJECTIVE: VITAL SIGNS: Within normal limits, afebrile. Alert and oriented times three. nonlabored breathing Heart rate: Regular rate Abdomen: Fundus firm at U-2. Soft, NTTP. Negative calf tenderness bilaterally ASSESSMENT: 20yo G 1 P 1 day 2 s/p at 41+1 wks gestation B positive/RI/ GBS positive, adequately treated Normal progression well GHTN with elevated BP in labor meeting criteria for dx. Normotensive since delivery. VSS Plans Piedad for control after discharge. Vitals within normal limits, afebrile, hemodynamically stable with no evidence of infection. PLAN: - Discharge to home today. - Tylenol and Motrin for pain. - Encourage breast feeding and ambulation. - Return to clinic in one week for blood pressure check then routine PP visit in 6 weeks in clinic. - Discussed return precautions at length. VS, I&O, 24H, Fishbone Vital Signs/I&O Vital Signs Date Time Temp Pulse Resp B/P (MAP) Pulse Ox O2 Delivery O2 Flow Rate FiO2 02/02/21 18:00 98.1 89 18 123/76 (92) 02/02/21 07:04 98 Room Air Laboratory Data 24H LABS Laboratory Tests 2 02/02/21 06:17: Nucleated Red Blood Cells % (auto) 0.0 CBC/BMP Laboratory Tests 02/02/21 06:17 ELIZ GARCIA DO Feb 03, 2021 00:35
[2021-02-03] MEDS: PRENATAL VITAMINS CHEWABLE TABLET PO SCH (09:00)
== END 2021-02-03 13:10 | disposition home or self-care (01) | DRG 807 ==
LOC: M LDI 11:05 → M OBS 02-01 13:48
PROVIDERS: ADMIT Obstetrics & Gynecology; ATTEND Obstetrics & Gynecology
PROC: 3E033VJ Introduction of Other Hormone into Peripheral Vein, Percutaneous Approach (ICD-10-PCS; 2021-01-31)
PROC: 10907ZC Drainage of Amniotic Fluid, Therapeutic from Products of Conception, Via Natural or Artificial Opening (ICD-10-PCS; 2021-01-31)
PROC: 10E0XZZ Delivery of Products of Conception, External Approach (ICD-10-PCS; principal; 2021-02-01)
DX: O48.0 Post-term pregnancy (principal); Z37.0 Single live birth; Z3A.41 41 weeks gestation of pregnancy; O99.334 Smoking (tobacco) complicating childbirth; F17.290 Nicotine dependence, other tobacco product, uncomplicated; O99.824 Streptococcus B carrier state complicating childbirth; O77.0 Labor and delivery complicated by meconium in amniotic fluid

== ENCOUNTER 2021-10-05 20:26 | Inpatient (IN) | payer OTHER ==
[~2021-10-05] VITALS: Ht 168.9 cm; Wt 90.3 kg
[~2021-10-05 20:26] MED LIST changes: +DOCU100C16 PO; +IBUP-1022 PO
[2021-10-05 22:46] LABS: HEMATOCRIT 38.8 % (36.0-47.0); HEMOGLOBIN 13.2 g/dl (12.0-15.5); MEAN CORPUSCULAR HEMOGLOBIN 32.2 pg (27.0-33.0); MEAN CORPUSCULAR VOLUME 94.6 fl (80.0-96.0); PLATELET COUNT, AUTOMATED 239 10^3/uL (150-450)
[2021-10-05 23:12] LABS: HCG, SERUM QUALITATIVE NEGATIVE (NEGATIVE)
[2021-10-05 23:13] LABS: AMPHETAMINES LEVEL URINE NEGATIVE (NEGATIVE); BARBITURATES URINE NEGATIVE (NEGATIVE); BENZODIAZEPINES URINE NEGATIVE (NEGATIVE); CANNABINOIDS URINE NEGATIVE (NEGATIVE); COCAINE METABOLITE URINE NEGATIVE (NEGATIVE); METHADONE URINE NEGATIVE (NEGATIVE); OPIATES URINE NEGATIVE (NEGATIVE); PHENCYCLIDINE URINE NEGATIVE (NEGATIVE)
[2021-10-05 23:23] LABS: ALBUMIN 3.3 GM/DL (3.2-5.2); ALT/SGPT 22 U/L (12-78); BILIRUBIN,DIRECT 0.1 MG/DL (0.0-0.2); BILIRUBIN,TOTAL 0.5 MG/DL (0.2-1.0); BLOOD UREA NITROGEN 11 MG/DL (7-18); CALCIUM LEVEL 9.1 MG/DL (8.5-10.1); CARBON DIOXIDE LEVEL 26 MEQ/L (21-32); CHLORIDE LEVEL 108 MEQ/L (98-107); CREATININE FOR GFR 0.96 MG/DL (0.55-1.30); ETHYL ALCOHOL (ETHANOL) < 0.003 % (0.000-0.010); GLOMERULAR FILTRATION RATE > 60.0 (>60); GLUCOSE, FASTING 105 MG/DL (70-100); POTASSIUM SERUM 3.9 MEQ/L (3.5-5.1); SALICYLATE LEVEL < 1.7 MG/DL (5.0-30.0); SODIUM LEVEL 142 MEQ/L (136-145); TOTAL PROTEIN 7.4 GM/DL (6.4-8.2)
[2021-10-06] MEDS ORDERED: HOME MED LIST COMPLETE! XX SCH (05:15)
[2021-10-06] MEDS ORDERED: ACETAMINOPHEN TAB 650MG DOSE (2X325MG) PO PRN (12:25)
[2021-10-06] MEDS ORDERED: MOM 30ML SUSPENSION UDC PO PRN (12:25)
[2021-10-06] MEDS ORDERED: diphenhydrAMINE 25MG CAP PO PRN (12:25)
[2021-10-06] MEDS ORDERED: MAALOX 30 ML SUSP *UDC PO PRN (12:25)
[2021-10-06] MEDS ORDERED: traZODone 50 MG TAB PO PRN (12:25)
[2021-10-06] MEDS: NICOTINE 21MG/24HR 1 EA TRANSDERMAL TD SCH (14:20)
[2021-10-06 15:55] VITALS: BP 140/92
[2021-10-07 06:25] VITALS: BP 138/78
[2021-10-07] MEDS: NICOTINE 21MG/24HR 1 EA TRANSDERMAL TD SCH (09:00)
[2021-10-07] MEDS: SERTRALINE HCL 50 MG TAB PO SCH (12:52)
[2021-10-07 16:31] VITALS: BP 140/81
[2021-10-08 06:46] VITALS: BP 143/67
[2021-10-08] MEDS: NICOTINE 21MG/24HR 1 EA TRANSDERMAL TD SCH (08:28)
[2021-10-08] MEDS: SERTRALINE HCL 50 MG TAB PO SCH (08:30)
[2021-10-08] MEDS ORDERED: NICO21PAT TD (09:41)
[2021-10-08] MEDS ORDERED: SERT50TA29 PO (09:41)
== END 2021-10-08 13:38 | disposition home or self-care (01) | DRG 885 ==
LOC: M ED 20:26 → M ED INP 10-06 12:23 → M PSY 10-06 16:14
PROVIDERS: ADMIT Student in an Organized Health Care Education/Training Program; ATTEND Student in an Organized Health Care Education/Training Program
DX: F33.1 Major depressive disorder, recurrent, moderate (principal); F17.290 Nicotine dependence, other tobacco product, uncomplicated; Z63.0 Problems in relationship with spouse or partner; Z79.899 Other long term (current) drug therapy; Z20.822 Contact with and (suspected) exposure to COVID-19

== ENCOUNTER 2023-10-04 05:54 | Emergency (ER) | payer OTHER ==
[~2023-10-04] VITALS: Ht 170.2 cm; Wt 88.6 kg
[~2023-10-04 05:54] MED LIST changes: +NICO21PAT TD; +SERT50TA29 PO
[2023-10-04 07:10] LABS: BASO # 0.1 10^3/uL (0.0-0.2); BASO % 0.6 % (0.0-1.0); EOS % 0.4 % (0.0-3.0); HEMATOCRIT 41.7 % (36.0-47.0); HEMOGLOBIN 14.3 g/dl (12.0-15.5); LYMPH # 2.6 10^3/uL (1.5-5.0); LYMPH % 31.3 % (24.0-44.0); MEAN CORPUSCULAR HEMOGLOBIN 32.9 pg (27.0-33.0); MEAN CORPUSCULAR HGB CONC 34.3 g/dl (32.0-36.5); MEAN CORPUSCULAR VOLUME 95.9 fl (80.0-96.0); MONO # 0.9 10^3/uL (0.0-0.8); MONO % 10.3 % (2.0-8.0); NEUTROPHILS # 4.8 10^3/uL (1.5-8.5); NEUTROPHILS % 57.2 % (36.0-66.0); PLATELET COUNT, AUTOMATED 243 10^3/uL (150-450); RED BLOOD COUNT 4.35 10^6/uL (4.00-5.40); WHITE BLOOD COUNT 8.4 10^3/uL (4.0-10.0)
[2023-10-04 07:33] LABS: HCG, SERUM QUALITATIVE NEGATIVE (NEGATIVE); LIPASE 28 U/L (12-53)
[2023-10-04 07:35] LABS: ALBUMIN 3.8 G/DL (3.2-5.2); ALKALINE PHOSPHATASE 103 U/L (46-116); ALT/SGPT 21 U/L (7.0-40); AST/SGOT 12 U/L (<34); BILIRUBIN,DIRECT 0.3 MG/DL (<0.4); BLOOD UREA NITROGEN 8 MG/DL (9-23); CALCIUM LEVEL 9.6 MG/DL (8.5-10.1); CARBON DIOXIDE LEVEL 31 MMOL/L (20-31); CHLORIDE LEVEL 103 MMOL/L (98-107); CREATININE FOR GFR 1.16 MG/DL (0.55-1.30); GLOMERULAR FILTRATION RATE > 60.0 (>60); GLUCOSE, FASTING 99 MG/DL (60-100); POTASSIUM SERUM 4.2 MMOL/L (3.5-5.1); SODIUM LEVEL 137 MMOL/L (136-145); TOTAL PROTEIN 7.5 G/DL (5.7-8.2)
[2023-10-04] MEDS: ONDANSETRON 4MG 2ML VIAL IV ONE (07:54)
[2023-10-04] MEDS: KETOROLAC 30 MG/ML 1ML VIAL IV ONE (07:54)
[2023-10-04] MEDS: NS 1,000 ML IV ONE (07:54)
[2023-10-04] MEDS ORDERED: ISOVUE-370 76% 100ML VIAL As Ordered ONE (08:02)
[2023-10-04] MEDS ORDERED: KETO10TAB PO (11:26)
[2023-10-04 11:33] VITALS: BP 114/57; TEMP 97.1; O2SAT 99
== END 2023-10-04 12:02 | disposition home or self-care (01) ==
LOC: M ED 05:54
DX: N83.291 Other ovarian cyst, right side (principal); Z97.5 Presence of (intrauterine) contraceptive device
CPT/HCPCS: 74177; 76856; 80048; 80076; 81001; 83690; 84703; 85025; 87086; 93976; 96361; 96374; 96375; 99284; J1885; J2405; Q9967

== ENCOUNTER 2025-02-08 20:38 | Emergency (ER) | payer OTHER ==
[~2025-02-08] VITALS: Ht 168.9 cm; Wt 83.2 kg
[~2025-02-08 20:38] MED LIST changes: -IBUP-1022 PO; +IBUP600T42 PO; +KETO10TAB PO
[2025-02-08 21:27] VITALS: TEMP 98.2
[2025-02-08 21:30] VITALS: BP 111/57
[2025-02-08 21:53] VITALS: O2SAT 100
== END 2025-02-08 22:14 | disposition left against medical advice (07) ==
LOC: M ED 20:38
DX: R55 Syncope and collapse (principal); Z53.9 Procedure and treatment not carried out, unspecified reason; F32.A Depression, unspecified